=== PATIENT | male | born 1930 | race Caucasian/White ===

== ENCOUNTER 2016-08-26 12:23 | Outpatient (CLI) | payer OTHER ==
[~2016-08-26 12:23] MED LIST: BACTRIM DS1 TAB PO; CARDIZEM LA240 MG PO; DIGOXIN0.25 MG PO; DONEPEZIL HCL10 M1 PO; ENTERIC COATED325 M1 PO; LANOXIN EQUIVALENT PO; LEVAQUIN500 MG PO; LORAZEPAM0.5 MG PO; NAMENDA5 MG PO; OMEPRAZOLE20 MG PO; PREDNISONE10 MG PO; STOOL SOFTENER100 M1 PO; TRIMOX250 MG PO
--- NOTE | 2016-08-26 13:16 | DIAGNOSTIC IMAGING REPORT ---
PROCEDURE: DEXA BONE DENSITY STUDY CLINICAL INDICATION: AGE RELATED OSTEOPOROSIS COMPARISON: None. FINDINGS: LUMBAR SPINE: Bone mineral density 1.238 g/cm2, T score 1.3 normal LEFT HIP: Bone mineral density 0.792 g/cm2, T score -1.6 osteopenia LEFT FEMORAL NECK: Bone mineral density 0.706 g/cm2, T score -1.6 osteopenia FRACTURE RISK CALCULATION ( when applicable): 10-year fracture risk of a major osteoporotic fracture 7.4% and of a hip fracture 3% (T score greater or equal to -1.0 to: NORMAL) (T score from -1.1 to -2.4: OSTEOPENIA) (T score ess than or equal to -2.5: OSTEOPOROSIS) IMPRESSION: 1. Osteopenia hip and femoral neck with a 10-year fracture risk of 7.4% and a hip fracture risk of 3%
== END 2016-08-26 23:00 ==
LOC: XR SRH 12:23
DX: M85.88 Other specified disorders of bone density and structure, other site (principal)